=== PATIENT | male | born 1955 | race Caucasian/White ===

== ENCOUNTER 2016-08-05 07:12 | Inpatient (IN) ==
--- NOTE | 2016-08-03 14:53 | XRay Report ---
CLINICAL INFORMATION: Preoperative evaluation TECHNIQUE: Upright PA and lateral chest x-ray COMPARISON: None. FINDINGS: Previous median sternotomy Lungs are negative. No parenchymal infiltrate or mass. Heart size is within normal limits. No cardiomegaly. No pulmonary edema or pulmonary congestion. No hilar or mediastinal abnormalities. No pleural fluid. Thoracic spine is negative. IMPRESSION: 1. Previous median sternotomy 2. No acute abnormality. Interpreted and Authenticated by: Rufino Encarnacion 08/03/16
[2016-08-03 15:08] LABS: Basophils # (Auto) 0 K/mcL (0.0-0.3); Basophils % (Auto) 0.5 % (0.0-2.0); Eosinophils # (Auto) 0.1 K/mcL (0.0-0.7); Eosinophils % (Auto) 1.6 % (0.0-7.0); Granulocytes % (Auto) 56.1 % (38.0-78.0); Lymphocytes # (Auto) 2.9 K/mcL (1.5-4.8); Lymphocytes % (Auto) 33.2 % (15.5-49.0); Mean Cell Volume 82.1 fL (80.0-100.0); Mean Corpuscular HGB Conc 33.6 g/dL (31.0-36.0); Mean Corpuscular Hemoglobin 27.6 pg (26.0-34.0); Monocytes # (Auto) 0.7 K/mcL (0.1-0.9); Monocytes % (Auto) 8.6 % (1.0-12.0); Platelet Count 144 K/mcL (140-440); RBC 4.98 M/mcL (4.50-5.90); Red Cell Distribution Width 16.5 % (11.5-14.5)
[2016-08-03 15:16] LABS: ALT/SGPT 23 U/l (0-40); Albumin 4.3 gm/dL (3.2-5.2); Albumin/Globulin Ratio 1.4 (1.0-2.3); Alkaline Phosphatase 196 U/L (39-117); Blood Urea Nitrogen 9 mg/dl (6-20)
[~2016-08-05 07:12] MED LIST: cefOXitin 2 GM in DEXTROSE 5% IN WATER 50 ML IV SCH; metroNIDAZOLE 500 MG/100 ML BAG IV SCH
[2016-08-05] MEDS ORDERED: 0.9 % SODIUM CHLORIDE 250 ML IV SCH (07:30)
[2016-08-05] MEDS ORDERED: LIDOCAINE HCL/PF 100 MG/5 ML SYRINGE IV ONE (10:00)
[2016-08-05] MEDS ORDERED: PROPOFOL 200 MG/20 ML VIAL IV ONE (10:00)
[2016-08-05] MEDS ORDERED: fentaNYL 250 MCG/5 ML VIAL IV ONE (10:00)
[2016-08-05] MEDS ORDERED: ePHEDrine 50 MG/ML AMPUL IV ONE (10:00)
[2016-08-05] MEDS ORDERED: ROCURONIUM 10 MG/ML ML IV ONE (10:00)
[2016-08-05] MEDS ORDERED: GLYCOPYRROLATE 0.2 MG/ML VIAL IV ONE (10:00)
[2016-08-05] MEDS ORDERED: HYDROmorphone 2 MG/ML SYRINGE IV ONE (10:00)
[2016-08-05] MEDS ORDERED: SUCCINYLCHOLINE 20 MG/ML ML IV ONE (10:00)
[2016-08-05] MEDS ORDERED: PHENYLEPHRINE 10 MG/ML VIAL IV ONE (10:00)
[2016-08-05] MEDS ORDERED: NEOSTIGMINE 1 MG/ML VIAL IV ONE (10:00)
[2016-08-05] MEDS ORDERED: ONDANSETRON 4 MG/2 ML VIAL IV ONE (10:00)
[2016-08-05] MEDS ORDERED: MIDAZOLAM 5 MG/5 ML VIAL IV ONE (10:00)
[2016-08-05] MEDS ORDERED: KETAMINE 100 MG/ML ML IV ONE (10:00)
[2016-08-05] MEDS ORDERED: KETOROLAC 30 MG/ML VIAL IV ONE (10:00)
[2016-08-05] MEDS ORDERED: DEXAMETHASONE 10 MG/ML VIAL IV ONE (10:00)
[2016-08-05] MEDS ORDERED: MEPERIDINE 25 MG/ML SYRINGE IV PRN (11:57)
[2016-08-05] MEDS ORDERED: METHOCARBAMOL 1,000 MG/10 ML VIAL IV PRN (11:57)
[2016-08-05] MEDS ORDERED: IPRATROPIUM/ALBUTEROL 3 ML AMPUL.NEB NEB PRN (11:57)
[2016-08-05] MEDS ORDERED: diphenhydrAMINE 50 MG/ML VIAL IV PRN (11:57)
[2016-08-05] MEDS ORDERED: HYDROmorphone 2 MG/ML SYRINGE IV PRN ×2 (11:57→13:47)
[2016-08-05] MEDS ORDERED: METOCLOPRAMIDE 10 MG/2 ML VIAL IV PRN (11:57)
[2016-08-05] MEDS ORDERED: PROMETHAZINE 25 MG/ML VIAL IV PRN (11:57)
[2016-08-05] MEDS ORDERED: ONDANSETRON 4 MG/2 ML VIAL IV PRN ×2 (11:57→14:10)
[2016-08-05] MEDS ORDERED: LACTATED RINGERS 250 ML IV PRN (11:57)
[2016-08-05] MEDS ORDERED: BENZOCAINE/MENTHOL 1 LOZENGE PO PRN (11:57)
[2016-08-05] MEDS ORDERED: FLUMAZENIL 0.1 MG/ML ML IV PRN (11:57)
[2016-08-05] MEDS ORDERED: MEPERIDINE 50 MG/ML SYRINGE IM ONE (11:57)
[2016-08-05] MEDS ORDERED: ePHEDrine 50 MG/ML AMPUL IV PRN (11:57)
[2016-08-05] MEDS ORDERED: NALOXONE HCL 0.4 MG/ML VIAL IV PRN (11:57)
[2016-08-05] MEDS ORDERED: PROMETHAZINE 25 MG/ML VIAL IM ONE (11:57)
[2016-08-05] MEDS ORDERED: LACTATED RINGERS 1,000 ML IV SCH (12:00)
[2016-08-05] MEDS: fentaNYL 100 MCG/2 ML VIAL IV PRN ×4 (13:35→13:58)
[2016-08-05] MEDS ORDERED: ACETAMINOPHEN 1,000 MG/100 ML BOTTLE IV PRN ×2 (13:47→14:10)
--- NOTE | 2016-08-05 13:55 | Brief Operative Note ---
Date of procedure: 08/05/16 Pre-op diagnosis: colostomy status Post-op diagnosis: same Procedure: COLOSTOMY CLOSURE Grafts/Implants: No Anesthesia: GETA Findings: NO INTRAPERITONEAL ABNORMALITY NOTED Complications: none Surgeon: Clarisa Salvador Estimated blood loss (cc): 100 Specimens Removed/Pathology: other (STOMA) Condition: stable Disposition: PACU
[2016-08-05] MEDS ORDERED: metroNIDAZOLE 500 MG/100 ML BAG IV SCH (14:00)
[2016-08-05] MEDS ORDERED: PIPERACILLIN SODIUM/TAZOBACTAM 3.375 GM in DEXTROSE 5% IN WATER 50 ML IV SCH (14:00)
[2016-08-05] MEDS: metroNIDAZOLE 500 MG/100 ML BAG IV SCH ×3 (15:06→23:53)
[2016-08-05] MEDS: 0.9 % SODIUM CHLORIDE 10 ML SYRINGE IV SCH ×2 (15:06→20:12)
[2016-08-05] MEDS: 0.9 % SODIUM CHLORIDE 1,000 ML IV SCH (15:06)
[2016-08-05] MEDS: PIPERACILLIN SODIUM/TAZOBACTAM 3.375 GM in DEXTROSE 5% IN WATER 50 ML IV SCH ×3 (16:42→23:53)
[2016-08-05] MEDS: HYDROmorphone 2 MG/ML SYRINGE IV PRN (17:04)
[2016-08-05] MEDS ORDERED: METOCLOPRAMIDE 10 MG/2 ML VIAL IV SCH (18:00)
[2016-08-05] MEDS: METOCLOPRAMIDE 10 MG/2 ML VIAL IV SCH ×2 (18:33→23:53)
[2016-08-06] MEDS: 0.9 % SODIUM CHLORIDE 1,000 ML IV SCH ×3 (01:50→21:00)
[2016-08-06] MEDS: HYDROmorphone 2 MG/ML SYRINGE IV PRN ×4 (02:37→23:47)
[2016-08-06] MEDS: metroNIDAZOLE 500 MG/100 ML BAG IV SCH ×4 (05:29→23:47)
[2016-08-06] MEDS: METOCLOPRAMIDE 10 MG/2 ML VIAL IV SCH ×3 (05:29→17:57)
[2016-08-06] MEDS: 0.9 % SODIUM CHLORIDE 10 ML SYRINGE IV SCH ×3 (05:29→22:33)
[2016-08-06] MEDS: PIPERACILLIN SODIUM/TAZOBACTAM 3.375 GM in DEXTROSE 5% IN WATER 50 ML IV SCH ×3 (05:30→19:00)
[2016-08-06 06:05] LABS: Basophils # (Auto) 0 K/mcL (0.0-0.3); Basophils % (Auto) 0 % (0.0-2.0); Eosinophils # (Auto) 0 K/mcL (0.0-0.7); Eosinophils % (Auto) 0 % (0.0-7.0); Granulocytes % (Auto) 86.7 % (38.0-78.0); Lymphocytes % (Auto) 6.1 % (15.5-49.0); Mean Cell Volume 83.6 fL (80.0-100.0); Mean Corpuscular HGB Conc 33.6 g/dL (31.0-36.0); Mean Corpuscular Hemoglobin 28.1 pg (26.0-34.0); Monocytes # (Auto) 1.2 K/mcL (0.1-0.9); Monocytes % (Auto) 7.2 % (1.0-12.0); Platelet Count 114 K/mcL (140-440); RBC 4.11 M/mcL (4.50-5.90); Red Cell Distribution Width 16.3 % (11.5-14.5)
[2016-08-06] MEDS ORDERED: METOPROLOL TARTRATE 5 MG/5 ML VIAL IV PRN (13:47)
--- NOTE | 2016-08-06 14:09 | General Surgery Progress Note ---
Subjective Patient reports: feels better, pain is less, no flatus, no bowel movement, afebrile Narrative: Note initiated : 08/06/16 at 2:07 pm Service Date, if different from initiated Date: [] Patient: Jann Purvis 61 y/o M admitted on 08/05/16 for Colostomy Closure. Chief Complaint: [PATIENT STATES THAT HE FEELS WELL.HE HAS MILD SORENESS BUT NO MAJOR PAIN.HE DENIES CHEST PAIN OR SHORTNESS OF BREATH. hE HAS NOT HAD PALPITATIONS. tHIS MAJOR COMPLAINT IS SORENESS FROM THE NASOGASTRIC TUBE. HIS PAIN IS PRIMARILY CONTROLLED.] Objective Temp Pulse Resp BP Pulse Ox 97.2 F L 74 16 137/79 93 08/06/16 11:16 08/06/16 08:00 08/06/16 11:16 08/06/16 11:16 08/06/16 11:16 - Additional Data Intake & Output - Last 24 hours: Intake & Output 08/04/16 08/05/16 08/06/16 08/07/16 05:59 05:59 05:59 05:59 Intake Total 4150 / 4150 906 / 906 Output Total 1964 / 1964 Balance 2185 / 2185 906 / 906 Weight 254 lb 14.4 oz - General physical appearance well nourished, no distress, moderate pain - Eyes PERRL - ENT no congestion - Neck no venous distension - Respiratory normal respiratory effort, clear to auscultation - Cardiovascular Cardiovascular exam: Present: normal rate and rhythm, RRR, +S1, +S2. Absent: JVD, systolic murmur - Abdomen tender, bowel sounds (FEW ACTIVE BOWEL SOUNDS; INCISION LOOKS GOOD; THERE IS MILD DISTENTION.) - Integumentary no rash, no growths, no abnormal pigmentation - Neurologic normal coordination, normal sensation - Musculoskeletal normal gait, normal posture - Psychiatric oriented to time, oriented to person, oriented to place, speech is normal, memory intact - Labs 08/06/16 03:55 08/03/16 14:00 Assessment and Plan (1) Colostomy status Status: Chronic Assessment and plan: PATIENT IS DOING WELL ON POSTOPERATIVE DAY 1 NO CHANGE IN THERAPY Current Visit: No (2) Diabetes mellitus, type II Status: Chronic Assessment and plan: ADD SLIDING SCALE WITH hUMALOG Current Visit: No - Time Spent With Patient Total time spent is greater than 50% in coordination of care (as documented) at patient's floor/unit and/or counseling patient:
--- NOTE | 2016-08-06 15:54 | Surgical Pathology Report ---
HISTOLOGY SPECIMEN MICROSCOPIC DIAGNOSIS COLOSTOMY STOMA, TAKE-DOWN: -- ENTEROCUTANEOUS ANASTOMOSIS WITH FIBROSIS, FOCAL EROSION, AND PATCHY CHRONIC INFLAMMATION. -- ADIPOSE TISSUE WITH FAT NECROSIS AND REACTIVE LYMPH NODE. (SEH:adj) PROCEDURAL IMPRESSION Colostomy placed for healing perirectal abscess. GROSS DESCRIPTION Received in formalin labeled stoma, is a tissue fragment consistent with a stoma. This has skin with the suture closed to form an ellipse which measures 1.0 x 4.5 cm. This is the end of a stomal segment up to 3.5 cm in diameter and 5.0 cm long. Attached yellow-yepez fat measures 5.0 x 6.0 x 1.0 cm. The end opposite the skin is stapled. The mucosa is yepez with unremarkable folds. No masses or additional lesions are identified within this specimen. A separate fragment within the container is yepez, rubbery, fibrous-appearing tissue and yellow-yepez adipose tissue. This fragment measures 2.0 x 3.0 x 1.2 cm. Cut sections show yepez adipose tissue with small amounts of fibrous-appearing tissue. Sections submitted: A1-A3 - stomal fragment; A4 - maintenance representative section of additional fragment. (RAD:djf) Electronically Signed by: Lorene Gonzáles D.O.
[2016-08-06] MEDS ORDERED: DEXTROSE 50% 50 ML VIAL IV PRN (16:58)
[2016-08-06] MEDS ORDERED: INSULIN LISPRO 1 UNIT/0.01 ML UNIT SQ SCH (17:00)
[2016-08-06] MEDS: INSULIN LISPRO 1 UNIT/0.01 ML UNIT SQ SCH ×2 (17:49→23:47)
[2016-08-06] MEDS ORDERED: METOCLOPRAMIDE 10 MG/2 ML VIAL IV SCH (18:00)
[2016-08-07] MEDS: PIPERACILLIN SODIUM/TAZOBACTAM 3.375 GM in DEXTROSE 5% IN WATER 50 ML IV SCH ×5 (00:22→23:44)
[2016-08-07] MEDS: METOCLOPRAMIDE 10 MG/2 ML VIAL IV SCH ×4 (00:23→17:42)
[2016-08-07] MEDS: hydrALAZINE 20 MG/ML VIAL IV PRN ×4 (05:13→23:53)
[2016-08-07] MEDS: INSULIN LISPRO 1 UNIT/0.01 ML UNIT SQ SCH ×3 (05:16→17:38)
[2016-08-07 05:33] LABS: Basophils # (Auto) 0 K/mcL (0.0-0.3); Basophils % (Auto) 0.3 % (0.0-2.0); Eosinophils # (Auto) 0 K/mcL (0.0-0.7); Eosinophils % (Auto) 0.1 % (0.0-7.0); Lymphocytes % (Auto) 15.6 % (15.5-49.0); Mean Cell Volume 83.8 fL (80.0-100.0); Mean Corpuscular HGB Conc 33.6 g/dL (31.0-36.0); Mean Corpuscular Hemoglobin 28.1 pg (26.0-34.0); Platelet Count 106 K/mcL (140-440); RBC 3.87 M/mcL (4.50-5.90); Red Cell Distribution Width 16.4 % (11.5-14.5)
[2016-08-07] MEDS: 0.9 % SODIUM CHLORIDE 10 ML SYRINGE IV SCH ×3 (05:56→23:44)
[2016-08-07] MEDS: metroNIDAZOLE 500 MG/100 ML BAG IV SCH ×3 (05:56→18:33)
[2016-08-07] MEDS: 0.9 % SODIUM CHLORIDE 1,000 ML IV SCH ×3 (05:57→15:56)
[2016-08-07] MEDS: HYDROmorphone 2 MG/ML SYRINGE IV PRN ×3 (08:30→18:51)
[2016-08-07 10:17] LABS: ALT/SGPT 11 U/l (0-40); Albumin 3.2 gm/dL (3.2-5.2); Alkaline Phosphatase 80 U/L (39-117); Blood Urea Nitrogen 13 mg/dl (6-20)
--- NOTE | 2016-08-07 13:16 | General Surgery Progress Note ---
Subjective Patient reports: feels better, pain is less, flatus, bowel movement, blood in stool, afebrile Narrative: Note initiated : 08/07/16 at 1:10 pm Service Date, if different from initiated Date: [] Patient: Jann Purvis 61 y/o M admitted on 08/05/16 for Colostomy Closure. Chief Complaint: [PATIENT IS DOING RATHER WELL. hE STATES THAT HIS PAIN IS CONTROLLED. hE HAD A SINGLE EPISODE OF FLATUS AND A SMALL BLOODY BOWEL MOVEMENT TODAY. wE TRIED TO DISCONNECT HIS NASOGASTRIC TUBE AND HE B BLOATED AND REQUESTED THAT IT BE RECONNECTED. hE DID NOT HAVE ANY SIGNIFICANT PAIN HOWEVER. hE DID NOT HAVE NAUSEA. hIS INCISION IS UNREMARKABLE AND HIS binh DRAIN REMAINS BLOODY.] Objective Temp Pulse Resp BP Pulse Ox 99.4 F H 73 20 157/78 95 08/07/16 12:00 08/07/16 12:00 08/07/16 12:00 08/07/16 12:00 08/07/16 12:00 - Additional Data Intake & Output - Last 24 hours: Intake & Output 08/05/16 08/06/16 08/07/16 08/08/16 05:59 05:59 05:59 05:59 Intake Total 4150 / 4150 1406 / 1406 1100 / 1100 Output Total 1965 / 1965 1989 / 1989 690 / 690 Balance 2185 / 2185 -584 / -584 410 / 410 Weight 254 lb 14.4 oz 252 lb 8 oz - General physical appearance no distress - Eyes PERRL - ENT no congestion - Neck no venous distension - Respiratory clear to auscultation - Cardiovascular Cardiovascular exam: Present: normal rate and rhythm, RRR, +S1, +S2. Absent: JVD - Abdomen soft, tender, bowel sounds, distended (GOOD ACTIVE BOWEL SOUNDS BUT WITH MORE DISTENTION. mILD TENDERNESS OF THE INCISION. binh DRAINAGE IS BLOODY.) - Integumentary no rash, no growths, no abnormal pigmentation - Musculoskeletal normal gait, normal posture - Psychiatric oriented to time, oriented to person, oriented to place, speech is normal, memory intact - Labs 08/07/16 04:52 08/07/16 08:45 Diabetes panel 08/07/16 Range/Units 08:45 Sodium 137 (133-145) mmol/L Potassium 3.9 (3.3-5.1) mmol/L Chloride 103 (96-108) mmol/L Carbon Dioxide 20 L (22-30) mmol/L BUN 13 (6-20) mg/dl Creatinine 0.8 (0.7-1.2) mg/dl Glucose 152 H (70-105) mg/dL Calcium 8.4 L (8.6-10.4) mg/dl AST 9 (0-37) U/l ALT 11 (0-40) U/l Alkaline Phosphatase 80 (39-117) U/L Total Protein 6.4 (5.9-8.4) gm/dL Albumin 3.2 (3.2-5.2) gm/dL Calcium panel 08/07/16 Range/Units 08:45 Calcium 8.4 L (8.6-10.4) mg/dl Albumin 3.2 (3.2-5.2) gm/dL Pituitary panel 08/07/16 Range/Units 08:45 Sodium 137 (133-145) mmol/L Potassium 3.9 (3.3-5.1) mmol/L Chloride 103 (96-108) mmol/L Carbon Dioxide 20 L (22-30) mmol/L BUN 13 (6-20) mg/dl Creatinine 0.8 (0.7-1.2) mg/dl Glucose 152 H (70-105) mg/dL Calcium 8.4 L (8.6-10.4) mg/dl Adrenal panel 08/07/16 Range/Units 08:45 Sodium 137 (133-145) mmol/L Potassium 3.9 (3.3-5.1) mmol/L Chloride 103 (96-108) mmol/L Carbon Dioxide 20 L (22-30) mmol/L BUN 13 (6-20) mg/dl Creatinine 0.8 (0.7-1.2) mg/dl Glucose 152 H (70-105) mg/dL Calcium 8.4 L (8.6-10.4) mg/dl Total Bilirubin 0.5 (0.0-1.0) mg/dL AST 9 (0-37) U/l ALT 11 (0-40) U/l Alkaline Phosphatase 80 (39-117) U/L Total Protein 6.4 (5.9-8.4) gm/dL Albumin 3.2 (3.2-5.2) gm/dL Assessment and Plan (1) Colostomy status Status: Chronic Assessment and plan: PATIENT IS DOING WELL ON POSTOPERATIVE DAY 2 NO CHANGE IN THERAPY Current Visit: No (2) Diabetes mellitus, type II Status: Chronic Assessment and plan: ADD SLIDING SCALE WITH hUMALOG Current Visit: No - Time Spent With Patient Total time spent is greater than 50% in coordination of care (as documented) at patient's floor/unit and/or counseling patient:
[2016-08-08] MEDS: metroNIDAZOLE 500 MG/100 ML BAG IV SCH ×5 (00:28→23:52)
[2016-08-08] MEDS: METOCLOPRAMIDE 10 MG/2 ML VIAL IV SCH ×5 (00:50→23:15)
[2016-08-08] MEDS: INSULIN LISPRO 1 UNIT/0.01 ML UNIT SQ SCH ×5 (00:57→23:24)
[2016-08-08] MEDS: HYDROmorphone 2 MG/ML SYRINGE IV PRN ×5 (01:39→20:45)
[2016-08-08] MEDS: 0.9 % SODIUM CHLORIDE 1,000 ML IV SCH ×3 (02:32→16:08)
[2016-08-08] MEDS: PIPERACILLIN SODIUM/TAZOBACTAM 3.375 GM in DEXTROSE 5% IN WATER 50 ML IV SCH ×4 (05:04→23:15)
[2016-08-08] MEDS: 0.9 % SODIUM CHLORIDE 10 ML SYRINGE IV SCH ×3 (05:57→23:20)
[2016-08-08 06:58] LABS: Basophils # (Auto) 0.1 K/mcL (0.0-0.3); Basophils % (Auto) 0.5 % (0.0-2.0); Eosinophils # (Auto) 0.1 K/mcL (0.0-0.7); Eosinophils % (Auto) 0.8 % (0.0-7.0); Granulocytes % (Auto) 72.2 % (38.0-78.0); Lymphocytes % (Auto) 17.4 % (15.5-49.0); Mean Cell Volume 84.9 fL (80.0-100.0); Mean Corpuscular HGB Conc 32.9 g/dL (31.0-36.0); Mean Corpuscular Hemoglobin 27.9 pg (26.0-34.0); Monocytes # (Auto) 1.1 K/mcL (0.1-0.9); Monocytes % (Auto) 9.1 % (1.0-12.0); Platelet Count 116 K/mcL (140-440); RBC 4.06 M/mcL (4.50-5.90); Red Cell Distribution Width 16.5 % (11.5-14.5)
[2016-08-08 08:01] LABS: ALT/SGPT 9 U/l (0-40); Albumin 3.1 gm/dL (3.2-5.2); Albumin/Globulin Ratio 1.3 (1.0-2.3); Alkaline Phosphatase 73 U/L (39-117); Blood Urea Nitrogen 13 mg/dl (6-20)
[2016-08-08] MEDS: hydrALAZINE 20 MG/ML VIAL IV PRN ×2 (12:18→19:21)
--- NOTE | 2016-08-08 14:00 | General Surgery Progress Note ---
Subjective Patient reports: feels better, pain is less, flatus, bowel movement, afebrile Narrative: Note initiated : 08/08/16 at 1:58 pm Service Date, if different from initiated Date: [] Patient: Jann Purvis 61 y/o M admitted on 08/05/16 for Colostomy Closure. Chief Complaint: [PATIENT IS DOING MUCH BETTER. hE HAD A COPIOUS AMOUNT OF FLATUS BUT HAS NOT HAD ANOTHER BOWEL MOVEMENT SINCE YESTERDAY. hE DENIES NAUSEA. hIS ABDOMINAL PAIN IS CONTROLLED. hE DOES NOT HAVE SIGNIFICANT DISTENTION.] Objective Temp Pulse Resp BP Pulse Ox 97.6 F 77 20 145/68 95 08/08/16 12:00 08/08/16 08:02 08/08/16 12:00 08/08/16 12:29 08/08/16 12:00 - Additional Data Intake & Output - Last 24 hours: Intake & Output 08/06/16 08/07/16 08/08/16 08/09/16 05:59 05:59 05:59 05:59 Intake Total 4150 / 4150 1406 / 1406 2920 / 2920 100 / 100 Output Total 1964 / 1964 1989 / 1989 3150 / 3150 70 / 70 Balance 2185 / 2185 -584 / -584 -230 / -230 30 / 30 Weight 254 lb 14.4 oz 252 lb 8 oz 254 lb - General physical appearance no distress, moderate pain - Eyes PERRL - ENT no congestion - Neck no venous distension - Respiratory normal respiratory effort, clear to auscultation - Cardiovascular Cardiovascular exam: Present: normal rate and rhythm, RRR, +S1, +S2. Absent: JVD - Abdomen soft, non tender (NO DISTENTION; GOOD ACTIVE BOWEL SOUNDS;INCISION LOOKS GOOD; binh DRAINAGE IS MORE SEROUS.) - Integumentary no rash, no growths, no abnormal pigmentation - Musculoskeletal normal gait, normal posture - Psychiatric oriented to time, oriented to person, oriented to place, speech is normal, memory intact - Labs 08/08/16 05:10 08/08/16 05:10 Diabetes panel 08/08/16 Range/Units 05:10 Sodium 138 (133-145) mmol/L Potassium 3.7 (3.3-5.1) mmol/L Chloride 104 (96-108) mmol/L Carbon Dioxide 21 L (22-30) mmol/L BUN 13 (6-20) mg/dl Creatinine 0.6 L (0.7-1.2) mg/dl Glucose 127 H (70-105) mg/dL Calcium 8.1 L (8.6-10.4) mg/dl AST 9 (0-37) U/l ALT 9 (0-40) U/l Alkaline Phosphatase 73 (39-117) U/L Total Protein 5.5 L (5.9-8.4) gm/dL Albumin 3.1 L (3.2-5.2) gm/dL Calcium panel 08/08/16 Range/Units 05:10 Calcium 8.1 L (8.6-10.4) mg/dl Albumin 3.1 L (3.2-5.2) gm/dL Pituitary panel 08/08/16 Range/Units 05:10 Sodium 138 (133-145) mmol/L Potassium 3.7 (3.3-5.1) mmol/L Chloride 104 (96-108) mmol/L Carbon Dioxide 21 L (22-30) mmol/L BUN 13 (6-20) mg/dl Creatinine 0.6 L (0.7-1.2) mg/dl Glucose 127 H (70-105) mg/dL Calcium 8.1 L (8.6-10.4) mg/dl Adrenal panel 08/08/16 Range/Units 05:10 Sodium 138 (133-145) mmol/L Potassium 3.7 (3.3-5.1) mmol/L Chloride 104 (96-108) mmol/L Carbon Dioxide 21 L (22-30) mmol/L BUN 13 (6-20) mg/dl Creatinine 0.6 L (0.7-1.2) mg/dl Glucose 127 H (70-105) mg/dL Calcium 8.1 L (8.6-10.4) mg/dl Total Bilirubin 0.5 (0.0-1.0) mg/dL AST 9 (0-37) U/l ALT 9 (0-40) U/l Alkaline Phosphatase 73 (39-117) U/L Total Protein 5.5 L (5.9-8.4) gm/dL Albumin 3.1 L (3.2-5.2) gm/dL Assessment and Plan (1) Colostomy status Status: Chronic Assessment and plan: PATIENT IS DOING WELL ON POSTOPERATIVE DAY 3 DISCONTINUE [place] CATHETER dISCONTINUE NASOGASTRIC TUBE dISCONTINUE HER scdS sTART CLEAR LIQUIDS 2 VIEW ABDOMINAL X-RAY IN THE MORNING Current Visit: No (2) Diabetes mellitus, type II Status: Chronic Assessment and plan: ADD SLIDING SCALE WITH hUMALOG WE'LL SWITCH TO l[facility] TOMORROW Current Visit: No - Time Spent With Patient Total time spent is greater than 50% in coordination of care (as documented) at patient's floor/unit and/or counseling patient:
[2016-08-09] MEDS: 0.9 % SODIUM CHLORIDE 1,000 ML IV SCH ×5 (01:59→20:30)
[2016-08-09] MEDS: hydrALAZINE 20 MG/ML VIAL IV PRN (03:31)
[2016-08-09] MEDS: METOCLOPRAMIDE 10 MG/2 ML VIAL IV SCH ×3 (05:03→17:25)
[2016-08-09] MEDS: PIPERACILLIN SODIUM/TAZOBACTAM 3.375 GM in DEXTROSE 5% IN WATER 50 ML IV SCH ×3 (05:03→17:06)
[2016-08-09 05:37] LABS: Basophils # (Auto) 0.1 K/mcL (0.0-0.3); Basophils % (Auto) 0.4 % (0.0-2.0); Eosinophils # (Auto) 0.4 K/mcL (0.0-0.7); Eosinophils % (Auto) 2.7 % (0.0-7.0); Granulocytes % (Auto) 68.8 % (38.0-78.0); Lymphocytes # (Auto) 2.5 K/mcL (1.5-4.8); Lymphocytes % (Auto) 18.7 % (15.5-49.0); Mean Cell Volume 84.5 fL (80.0-100.0); Mean Corpuscular HGB Conc 32.8 g/dL (31.0-36.0); Mean Corpuscular Hemoglobin 27.7 pg (26.0-34.0); Monocytes # (Auto) 1.3 K/mcL (0.1-0.9); Monocytes % (Auto) 9.4 % (1.0-12.0); Platelet Count 149 K/mcL (140-440); RBC 4.39 M/mcL (4.50-5.90); Red Cell Distribution Width 16.1 % (11.5-14.5)
[2016-08-09] MEDS: HYDROmorphone 2 MG/ML SYRINGE IV PRN ×3 (05:42→12:16)
[2016-08-09] MEDS: metroNIDAZOLE 500 MG/100 ML BAG IV SCH ×3 (05:49→17:37)
[2016-08-09] MEDS: INSULIN LISPRO 1 UNIT/0.01 ML UNIT SQ SCH ×4 (05:49→21:10)
[2016-08-09] MEDS: 0.9 % SODIUM CHLORIDE 10 ML SYRINGE IV SCH ×3 (05:49→21:19)
[2016-08-09 06:02] LABS: ALT/SGPT 10 U/l (0-40); Albumin 3.4 gm/dL (3.2-5.2); Albumin/Globulin Ratio 1.2 (1.0-2.3); Alkaline Phosphatase 78 U/L (39-117); Blood Urea Nitrogen 9 mg/dl (6-20)
[2016-08-09] MEDS: DILTIAZEM 180 MG CAP.XL.24H PO SCH (08:35)
[2016-08-09] MEDS: METOPROLOL SUCCINATE 25 MG TAB.XL.24H PO SCH (08:36)
[2016-08-09] MEDS: CITALOPRAM 20 MG TABLET PO SCH (08:36)
[2016-08-09] MEDS: LISINOPRIL 10 MG TABLET PO SCH (08:41)
--- NOTE | 2016-08-09 10:16 | XRay Report ---
CLINICAL INFORMATION: Postsurgical follow-up. Status post colostomy takedown TECHNIQUE: AP supine and upright abdomen COMPARISON: None. FINDINGS: Skin valerie in a vertical midline incision. There are multiple surgical clips in the left side of the abdomen and pelvis. There is gas throughout the colon. No significant dilatation. No dilated gas-filled small bowel. No pneumoperitoneum. No biliary or portal venous gas. No pneumatosis. No focal abnormality. Incidental note is made of previous lower lumbar spinal fusion IMPRESSION: Negative postoperative abdomen Interpreted and Authenticated by: Rufino Encarnacion 08/09/16
--- NOTE | 2016-08-09 13:17 | General Surgery Progress Note ---
Subjective Patient reports: feels better, pain is less, tolerating liquids well, flatus, bowel movement, afebrile Narrative: Note initiated : 08/09/16 at 1:15 pm Service Date, if different from initiated Date: [] Patient: Jann Purvis 61 y/o M admitted on 08/05/16 for Colostomy Closure. Chief Complaint: [patient is doing very well. He has had multip bowel movements and is passing copious amount of flat. He is tolerating clear liquids well. His AYDEN drainage is serous. He does not have abdominal distention and he has good active bowel sounds. His incision looks very good.] Objective Temp Pulse Resp BP Pulse Ox 97.8 F 72 18 117/74 96 08/09/16 12:00 08/09/16 12:00 08/09/16 12:00 08/09/16 12:00 08/09/16 12:00 - Additional Data Intake & Output - Last 24 hours: Intake & Output 08/07/16 08/08/16 08/09/16 08/10/16 05:59 05:59 05:59 05:59 Intake Total 1406 / 1406 2920 / 2920 2750 / 2750 100 / 100 Output Total 1989 / 1989 3150 / 3150 2960 / 2960 510 / 510 Balance -584 / -584 -230 / -230 -210 / -210 -410 / -410 Weight 252 lb 8 oz 254 lb 252 lb 1.6 oz - General physical appearance no distress, no pain - Eyes PERRL - ENT no congestion - Neck no venous distension - Respiratory normal respiratory effort, clear to auscultation - Cardiovascular Cardiovascular exam: Present: normal rate and rhythm, RRR, +S1, +S2. Absent: JVD, systolic murmur - Abdomen soft, non tender, bowel sounds (abdomen is mildly distended but he has good active bowel sounds. There is no tenderness. The incision looks good. AYDEN drainage is small amount and serous) - Integumentary no rash, no growths, no abnormal pigmentation - Neurologic normal coordination, normal sensation - Musculoskeletal normal gait, normal posture - Psychiatric oriented to time, oriented to person, oriented to place, speech is normal, memory intact - Labs 08/09/16 04:40 08/09/16 04:40 Diabetes panel 08/09/16 Range/Units 04:40 Sodium 134 (133-145) mmol/L Potassium 3.5 (3.3-5.1) mmol/L Chloride 100 (96-108) mmol/L Carbon Dioxide 17 L (22-30) mmol/L BUN 9 (6-20) mg/dl Creatinine 0.7 (0.7-1.2) mg/dl Glucose 133 H (70-105) mg/dL Calcium 8.5 L (8.6-10.4) mg/dl AST 10 (0-37) U/l ALT 10 (0-40) U/l Alkaline Phosphatase 78 (39-117) U/L Total Protein 6.3 (5.9-8.4) gm/dL Albumin 3.4 (3.2-5.2) gm/dL Calcium panel 08/09/16 Range/Units 04:40 Calcium 8.5 L (8.6-10.4) mg/dl Albumin 3.4 (3.2-5.2) gm/dL Pituitary panel 08/09/16 Range/Units 04:40 Sodium 134 (133-145) mmol/L Potassium 3.5 (3.3-5.1) mmol/L Chloride 100 (96-108) mmol/L Carbon Dioxide 17 L (22-30) mmol/L BUN 9 (6-20) mg/dl Creatinine 0.7 (0.7-1.2) mg/dl Glucose 133 H (70-105) mg/dL Calcium 8.5 L (8.6-10.4) mg/dl Adrenal panel 08/09/16 Range/Units 04:40 Sodium 134 (133-145) mmol/L Potassium 3.5 (3.3-5.1) mmol/L Chloride 100 (96-108) mmol/L Carbon Dioxide 17 L (22-30) mmol/L BUN 9 (6-20) mg/dl Creatinine 0.7 (0.7-1.2) mg/dl Glucose 133 H (70-105) mg/dL Calcium 8.5 L (8.6-10.4) mg/dl Total Bilirubin 0.8 (0.0-1.0) mg/dL AST 10 (0-37) U/l ALT 10 (0-40) U/l Alkaline Phosphatase 78 (39-117) U/L Total Protein 6.3 (5.9-8.4) gm/dL Albumin 3.4 (3.2-5.2) gm/dL Assessment and Plan (1) Colostomy status Status: Chronic Assessment and plan: PATIENT IS DOING WELL ON POSTOPERATIVE DAy #4 SALINE LOCK iv fULL LIQUID DIET aDVANCED TO REGULAR DIET IN THE MORNING cHANGE ABDOMINAL DRESSING cbc AND bmp IN THE MORNING Current Visit: No (2) Diabetes mellitus, type II Status: Chronic Assessment and plan: ADD SLIDING SCALE WITH hUMALOG wILL AND ONE HALF DOSE O HOME [facility] REG[facility]EN Current Visit: No - Time Spent With Patient Total time spent is greater than 50% in coordination of care (as documented) at patient's floor/unit and/or counseling patient:
[2016-08-09] MEDS ORDERED: METHOCARBAMOL 500 MG TABLET PO PRN (13:19)
[2016-08-09] MEDS ORDERED: traZODone HCL 50 MG TABLET PO PRN (21:00)
[2016-08-09] MEDS ORDERED: INSULIN GLARGINE, HUMAN 1 UNIT/0.01 ML SQ SCH (21:00)
[2016-08-09] MEDS: oxyCODONE HCL 5 MG TABLET PO PRN (21:09)
[2016-08-10] MEDS: PIPERACILLIN SODIUM/TAZOBACTAM 3.375 GM in DEXTROSE 5% IN WATER 50 ML IV SCH ×3 (00:23→11:22)
[2016-08-10] MEDS: METOCLOPRAMIDE 10 MG/2 ML VIAL IV SCH ×3 (00:40→11:31)
[2016-08-10] MEDS: metroNIDAZOLE 500 MG/100 ML BAG IV SCH ×3 (00:58→12:16)
[2016-08-10] MEDS: oxyCODONE HCL 5 MG TABLET PO PRN ×3 (03:07→11:30)
[2016-08-10 06:23] LABS: Basophils # (Auto) 0 K/mcL (0.0-0.3); Basophils % (Auto) 0.4 % (0.0-2.0); Eosinophils # (Auto) 0.4 K/mcL (0.0-0.7); Eosinophils % (Auto) 3.4 % (0.0-7.0); Granulocytes % (Auto) 60.8 % (38.0-78.0); Lymphocytes # (Auto) 2.6 K/mcL (1.5-4.8); Lymphocytes % (Auto) 24.5 % (15.5-49.0); Mean Corpuscular HGB Conc 33.3 g/dL (31.0-36.0); Monocytes # (Auto) 1.2 K/mcL (0.1-0.9); Monocytes % (Auto) 10.9 % (1.0-12.0); Platelet Count 124 K/mcL (140-440); RBC 3.75 M/mcL (4.50-5.90); Red Cell Distribution Width 15.9 % (11.5-14.5)
[2016-08-10] MEDS: 0.9 % SODIUM CHLORIDE 10 ML SYRINGE IV SCH ×2 (06:23→12:50)
[2016-08-10] MEDS: INSULIN LISPRO 1 UNIT/0.01 ML UNIT SQ SCH ×2 (06:47→11:23)
[2016-08-10 07:06] LABS: ALT/SGPT 8 U/l (0-40); Albumin 3.1 gm/dL (3.2-5.2); Albumin/Globulin Ratio 1.6 (1.0-2.3); Alkaline Phosphatase 71 U/L (39-117); Blood Urea Nitrogen 8 mg/dl (6-20)
[2016-08-10] MEDS: CITALOPRAM 20 MG TABLET PO SCH (08:32)
[2016-08-10] MEDS: DILTIAZEM 180 MG CAP.XL.24H PO SCH (08:32)
[2016-08-10] MEDS: LISINOPRIL 10 MG TABLET PO SCH (08:33)
[2016-08-10] MEDS: METOPROLOL SUCCINATE 25 MG TAB.XL.24H PO SCH (08:33)
--- NOTE | 2016-08-10 14:07 | Discharge Summary ---
Providers - Providers Patient information: Note initiated : 08/10/16 at 2:04 pm Service Date, if different from initiated Date: [] Patient: Jann Purvis 61 y/o M admitted on 08/05/16 for Colostomy Closure. Chief Complaint: [] Date of admission: 08/05/16 Discharge date: 08/10/16 Attending physician: Clarisa Salvador Hospitalization Hospital course: 61-year-old male with a history of colostomy that was placed for diversion of fecal stream due to a large perineal abscess. The patient did well andwas scheduled for colostomy closure. He under went colostomy closure on 05 august.she had an uneventful postoperative course. He started passing gas on the second postoperative day and had regular bowel movements by the early fourth postoperative day His diet was advanced and he has no difficulty He has a AYDEN drain which has high volume serous fluid. He has been afebrile and his abdominal exam is benign. His incision is healing nicely and he is stable for discharge Discharge diagnosis: colostomy status Reason for admission: colostomy status Procedures: colostomy closure Pertinent studies/significant findings: none Complications: none Exam Temp Pulse Resp BP Pulse Ox 97.7 F 57 L 16 125/66 96 08/10/16 11:47 08/10/16 11:47 08/10/16 11:47 08/10/16 11:47 08/10/16 11:47 - General physical appearance well developed, well nourished, no distress - Eyes PERRL, normal ocular movement - ENT normal pinna, normal nares, normal mucosa, no hearing loss, no congestion - Head Head exam IM: Present: atraumatic, normocephalic - Neck no masses, no bruits, trachea midline, no lymphadectomy, no venous distension - Cardiovascular Cardiovascular exam IM: Present: normal rate and rhythm - Respiratory normal expansion, normal respiratory effort, clear to percussion, clear to auscultation - Abdomen Abdomen: Present: soft (minimal abdominal distention; good active bowel sounds; AYDEN drain with serous drainage; incision healing nicely), non tender, bowel sounds, distended Hernia: Present: none - Genitourinary Present: normal penis with no external lesions - Integumentary Present: no rash, no growths, no abnormal pigmentation - Neurologic Present: normal coordination, normal sensation - Musculoskeletal Present: normal gait, normal posture - Psychiatric Present: oriented to time, oriented to person, oriented to place, speech is normal, memory intact Discharge Plan - Patient/Caregiver Discharge Instructions Activity: increase activity as tolerated Diet: Regular Diet Additional Instructions: may restart Coumadin as before admission Prescriptions: oxyCODONE HCL [Roxicodone] 10 mg PO Q4HP PRN #60 tablet PRN Reason: Pain - Follow up Plan Follow up with: Clarisa Salvador MD [Physician] - 08/20/16 9:15 am Disposition: Home, Self-Care Prognosis: Good Rehab Potential: Good I certify that the patient requires SNF services.: No Overall status at discharge: patient is not back to baseline Pending Studies Resuscitation Status Full Code Diet Consistent Carbohydrate Diet Start WedAugust 10 Breakfast Citalopram Hydrobromide (Celexa) 10 mg PO DAILY [facility] Last Admin: 08/10/16 08:32 Dose: 10 mg Admin: 08/09/16 08:36 Dose: 10 mg Diagnostic Test (Pha) (Accu-Chek) 1 each FS ACHS [facility] Last Admin: 08/10/16 11:22 Dose: 1 each Admin: 08/10/16 06:46 Dose: 1 each Admin: 08/09/16 21:10 Dose: 1 each Admin: 08/09/16 16:32 Dose: 1 each Diltiazem HCl (Cardizem Cd) 180 mg PO DAILY PRAMOD Last Admin: 08/10/16 08:32 Dose: 180 mg Admin: 08/09/16 08:35 Dose: 180 mg Hydralazine HCl (Apresoline) 10 mg IV Q4-6HP PRN PRN Reason: Hypertension Last Admin: 08/09/16 03:31 Dose: 10 mg Admin: 08/08/16 19:21 Dose: 10 mg Admin: 08/08/16 12:18 Dose: 10 mg Admin: 08/07/16 23:53 Dose: 10 mg Admin: 08/07/16 14:59 Dose: 10 mg Admin: 08/07/16 10:37 Dose: 10 mg Admin: 08/07/16 05:13 Dose: 10 mg Hydromorphone HCl (Dilaudid) 1 mg IV Q2HP PRN PRN Reason: Pain Last Admin: 08/09/16 12:16 Dose: 1 mg Admin: 08/09/16 09:58 Dose: 1 mg Admin: 08/09/16 05:42 Dose: 1 mg Admin: 08/08/16 20:45 Dose: 1 mg Admin: 08/08/16 15:37 Dose: 1 mg Admin: 08/08/16 11:55 Dose: 1 mg Admin: 08/08/16 07:49 Dose: 1 mg Admin: 08/08/16 01:39 Dose: 1 mg Admin: 08/07/16 18:51 Dose: 1 mg Admin: 08/07/16 15:35 Dose: 1 mg Admin: 08/07/16 08:30 Dose: 1 mg Admin: 08/06/16 23:47 Dose: 1 mg Admin: 08/06/16 14:42 Dose: 1 mg Admin: 08/06/16 10:37 Dose: 1 mg Admin: 08/06/16 02:37 Dose: 1 mg Admin: 08/05/16 17:04 Dose: 1 mg Piperacillin Sod/Tazobactam (Sod 3.375 gm/ Dextrose) 50 mls @ 100 mls/hr IV Q6H PRAMOD Last Admin: 08/10/16 11:22 Dose: 100 mls/hr Infusion: 08/10/16 06:01 Dose: 100 mls/hr Admin: 08/10/16 05:31 Dose: 100 mls/hr Infusion: 08/10/16 00:58 Dose: 100 mls/hr Admin: 08/10/16 00:23 Dose: 100 mls/hr Infusion: 08/09/16 17:36 Dose: 100 mls/hr Admin: 08/09/16 17:06 Dose: 100 mls/hr Infusion: 08/09/16 12:31 Dose: 100 mls/hr Admin: 08/09/16 12:01 Dose: 100 mls/hr Infusion: 08/09/16 05:33 Dose: 100 mls/hr Admin: 08/09/16 05:03 Dose: 100 mls/hr Infusion: 08/08/16 23:45 Dose: 100 mls/hr Admin: 08/08/16 23:15 Dose: 100 mls/hr Infusion: 08/08/16 18:08 Dose: 100 mls/hr Admin: 08/08/16 17:38 Dose: 100 mls/hr Infusion: 08/08/16 12:25 Dose: 100 mls/hr Admin: 08/08/16 11:55 Dose: 100 mls/hr Infusion: 08/08/16 05:34 Dose: 100 mls/hr Admin: 08/08/16 05:04 Dose: 100 mls/hr Infusion: 08/08/16 00:14 Dose: 100 mls/hr Admin: 08/07/16 23:44 Dose: 100 mls/hr Infusion: 08/07/16 17:53 Dose: 100 mls/hr Admin: 08/07/16 17:23 Dose: 100 mls/hr Infusion: 08/07/16 14:03 Dose: 100 mls/hr Admin: 08/07/16 11:53 Dose: 100 mls/hr Infusion: 08/07/16 05:43 Dose: 100 mls/hr Admin: 08/07/16 05:13 Dose: 100 mls/hr Infusion: 08/07/16 00:52 Dose: 100 mls/hr Admin: 08/07/16 00:22 Dose: 100 mls/hr Infusion: 08/06/16 19:30 Dose: 100 mls/hr Admin: 08/06/16 19:00 Dose: 100 mls/hr Infusion: 08/06/16 13:43 Dose: 100 mls/hr Admin: 08/06/16 13:13 Dose: 100 mls/hr Infusion: 08/06/16 06:00 Dose: 0 mls/hr Admin: 08/06/16 05:30 Dose: 100 mls/hr Infusion: 08/06/16 01:00 Dose: 0 mls/hr Admin: 08/05/16 23:53 Dose: 100 mls/hr Infusion: 08/05/16 21:10 Dose: 100 mls/hr Admin: 08/05/16 20:08 Dose: 100 mls/hr Infusion: 08/05/16 18:22 Dose: 0 mls/hr Admin: 08/05/16 16:42 Dose: 100 mls/hr Metronidazole (Flagyl) 500 mg in 100 mls @ 100 mls/hr IV Q6H PRAMOD Last Admin: 08/10/16 12:16 Dose: 100 mls/hr Infusion: 08/10/16 07:23 Dose: 100 mls/hr Admin: 08/10/16 06:23 Dose: 100 mls/hr Infusion: 08/10/16 01:58 Dose: 100 mls/hr Admin: 08/10/16 00:58 Dose: 100 mls/hr Infusion: 08/09/16 18:40 Dose: 100 mls/hr Admin: 08/09/16 17:37 Dose: 100 mls/hr Infusion: 08/09/16 14:15 Dose: 100 mls/hr Admin: 08/09/16 13:15 Dose: 100 mls/hr Infusion: 08/09/16 06:50 Dose: 100 mls/hr Admin: 08/09/16 05:49 Dose: 100 mls/hr Infusion: 08/09/16 00:52 Dose: 100 mls/hr Admin: 08/08/16 23:52 Dose: 100 mls/hr Infusion: 08/08/16 19:19 Dose: 100 mls/hr Admin: 08/08/16 18:19 Dose: 100 mls/hr Infusion: 08/08/16 14:51 Dose: 100 mls/hr Admin: 08/08/16 13:51 Dose: 100 mls/hr Infusion: 08/08/16 07:47 Dose: 100 mls/hr Infusion: 08/08/16 06:47 Dose: 100 mls/hr Admin: 08/08/16 05:47 Dose: 100 mls/hr Infusion: 08/08/16 01:28 Dose: 100 mls/hr Admin: 08/08/16 00:28 Dose: 100 mls/hr Infusion: 08/07/16 19:33 Dose: 100 mls/hr Admin: 08/07/16 18:33 Dose: 100 mls/hr Infusion: 08/07/16 13:42 Dose: 100 mls/hr Admin: 08/07/16 12:42 Dose: 100 mls/hr Infusion: 08/07/16 06:56 Dose: 100 mls/hr Admin: 08/07/16 05:56 Dose: 100 mls/hr Infusion: 08/07/16 00:47 Dose: 100 mls/hr Admin: 08/06/16 23:47 Dose: 100 mls/hr Infusion: 08/06/16 18:39 Dose: 100 mls/hr Admin: 08/06/16 17:39 Dose: 100 mls/hr Infusion: 08/06/16 13:23 Dose: 100 mls/hr Admin: 08/06/16 12:02 Dose: 100 mls/hr Infusion: 08/06/16 07:13 Dose: 0 mls/hr Admin: 08/06/16 05:29 Dose: 100 mls/hr Infusion: 08/06/16 01:00 Dose: 0 mls/hr Admin: 08/05/16 23:53 Dose: 100 mls/hr Infusion: 08/05/16 20:07 Dose: 0 mls/hr Admin: 08/05/16 19:04 Dose: 100 mls/hr Infusion: 08/05/16 16:36 Dose: 0 mls/hr Admin: 08/05/16 15:06 Dose: 100 mls/hr Sodium Chloride (Sodium Chloride 0.9%) 1,000 mls @ 100 mls/hr IV .Q10H PRAMOD Last Admin: 08/09/16 20:30 Dose: 100 mls/hr Infusion: 08/09/16 17:47 Dose: 100 mls/hr Admin: 08/09/16 17:26 Dose: Not Given Admin: 08/09/16 07:47 Dose: 100 mls/hr Admin: 08/09/16 07:26 Dose: Not Given Infusion: 08/09/16 02:08 Dose: 100 mls/hr Admin: 08/09/16 01:59 Dose: Admin: 08/08/16 16:08 Dose: 100 mls/hr Infusion: 08/08/16 12:32 Dose: 100 mls/hr Admin: 08/08/16 12:12 Dose: Not Given Admin: 08/08/16 02:32 Dose: 100 mls/hr Infusion: 08/07/16 21:24 Dose: 100 mls/hr Admin: 08/07/16 15:56 Dose: Not Given Admin: 08/07/16 11:24 Dose: 100 mls/hr Infusion: 08/07/16 07:00 Dose: 100 mls/hr Admin: 08/07/16 05:57 Dose: Not Given Admin: 08/06/16 21:00 Dose: 100 mls/hr Admin: 08/06/16 10:39 Dose: Not Given Infusion: 08/06/16 01:51 Dose: 0 mls/hr Admin: 08/06/16 01:50 Dose: Not Given Admin: 08/05/16 15:06 Dose: 100 mls/hr Insulin Glargine (Lantus) 25 unit SQ HS [facility] Last Admin: 08/09/16 21:17 Dose: 25 unit Insulin Human Lispro (Humalog) 0 unit SQ [facility] PRN Reason: Protocol Last Admin: 08/10/16 11:23 Dose: Not Given Admin: 08/10/16 06:47 Dose: Not Given Admin: 08/09/16 21:10 Dose: Not Given Admin: 08/09/16 16:32 Dose: Not Given Lisinopril (Zestril) 20 mg PO QDAY [facility] Last Admin: 08/10/16 08:33 Dose: 20 mg Admin: 08/09/16 08:41 Dose: 20 mg Metoclopramide HCl (Reglan) 10 mg IV Q6 [facility] Last Admin: 08/10/16 11:31 Dose: 10 mg Admin: 08/10/16 05:40 Dose: 10 mg Admin: 08/10/16 00:40 Dose: 10 mg Admin: 08/09/16 17:25 Dose: 10 mg Admin: 08/09/16 12:17 Dose: 10 mg Admin: 08/09/16 05:03 Dose: 10 mg Admin: 08/08/16 23:15 Dose: 10 mg Admin: 08/08/16 17:38 Dose: 10 mg Admin: 08/08/16 11:55 Dose: 10 mg Admin: 08/08/16 05:04 Dose: 10 mg Admin: 08/08/16 00:50 Dose: 10 mg Admin: 08/07/16 17:42 Dose: 10 mg Admin: 08/07/16 11:53 Dose: 10 mg Admin: 08/07/16 05:13 Dose: 10 mg Admin: 08/07/16 00:23 Dose: 10 mg Admin: 08/06/16 17:57 Dose: 10 mg Admin: 08/06/16 12:02 Dose: 10 mg Admin: 08/06/16 05:29 Dose: 10 mg Admin: 08/05/16 23:53 Dose: 10 mg Admin: 08/05/16 18:33 Dose: 10 mg Metoprolol Succinate (Toprol Xl) 25 mg PO QDAY [facility] Last Admin: 08/10/16 08:33 Dose: 25 mg Admin: 08/09/16 08:36 Dose: 25 mg Ondansetron HCl (Zofran) 4 mg IV Q4HP PRN PRN Reason: Nausea And Vomiting Last Admin: 08/07/16 21:19 Dose: 4 mg Oxycodone HCl (Roxicodone) 10 mg PO Q4HP PRN PRN Reason: Pain Last Admin: 08/10/16 11:30 Dose: 10 mg Admin: 08/10/16 07:05 Dose: 10 mg Admin: 08/10/16 03:07 Dose: 10 mg Admin: 08/09/16 21:09 Dose: 10 mg Sodium Chloride (Saline Flush) 10 ml IV Q8 PRAMOD Last Admin: 08/10/16 12:50 Dose: Not Given Admin: 08/10/16 06:23 Dose: 10 ml Admin: 08/09/16 21:19 Dose: Not Given Admin: 08/09/16 13:15 Dose: Not Given Admin: 08/09/16 05:49 Dose: Not Given Admin: 08/08/16 23:20 Dose: Not Given Admin: 08/08/16 14:12 Dose: Not Given Admin: 08/08/16 05:57 Dose: Not Given Admin: 08/07/16 23:44 Dose: Not Given Admin: 08/07/16 14:03 Dose: Not Given Admin: 08/07/16 05:56 Dose: Not Given Admin: 08/06/16 22:33 Dose: Not Given Admin: 08/06/16 13:21 Dose: Not Given Admin: 08/06/16 05:29 Dose: Not Given Admin: 08/05/16 20:12 Dose: Not Given Admin: 08/05/16 15:06 Dose: Shift Summary 08/10/16 04:52 Shift Summary by Guerline Xiao Up with SBA to help with IV pole to BR. Has had loose stools. Has used urinal at bedside. AYDEN drain to right abd. Abdominal incisions x2 with valerie covered with tegaderm CDI. NS@100 to left wrist. Tolerating full liquids. Pt used CPAP while asleep. Oxycodone used for pain. Initialized on 08/10/16 04:52 - END OF NOTE
== END 2016-08-10 14:26 | disposition home or self-care (01) | DRG 331 ==
LOC: MEDSUR 07:12 → EDSTATUS 09:30 → ICU 14:11 → MEDSUR 08-06 09:38
PROVIDERS: ADMIT Family Medicine Adult Medicine; ATTEND Family Medicine Adult Medicine